=== PATIENT | male | born 1975 ===

== ENCOUNTER 2022-08-17 18:12 | Outpatient (REF) | payer MEDICAID, SELFPAY ==
[2022-08-17 21:31] LABS: Cholesterol 248 mg/dL (<200); HDL Cholesterol 36 mg/dL (40-60); Triglyceride 544 mg/dL (<150)
[2022-08-17 22:00] LABS: LDL CHOLESTEROL 120 mg/dL (<100)
== END 2022-08-17 18:13 | disposition home or self-care (01) ==
LOC: NCHCN 18:12
PROVIDERS: Visit Provider Family Medicine
DX: E78.89 Other lipoprotein metabolism disorders (principal)
CPT/HCPCS: 80061; 83721